=== PATIENT | female | born 1990 | race African-American/Black ===

== ENCOUNTER 2022-06-18 21:42 | Emergency (ER) | payer MEDICAID, SELFPAY ==
[2022-06-18] MEDS ORDERED: HYDROcodone/Acetaminophen 10/325 mg Tablet ONE (22:55)
== END 2022-06-18 23:00 | disposition home or self-care (01) ==
LOC: ERS 21:42
DX: S63.287A Dislocation of proximal interphalangeal joint of left little finger, initial encounter (principal); W18.30XA Fall on same level, unspecified, initial encounter
CPT/HCPCS: 26770